=== PATIENT | male | born 1980 | race African-American/Black ===

== ENCOUNTER 2019-08-05 22:28 | Inpatient (IN) | payer MEDICAID ==
[~2019-08-05] VITALS: Ht 180.3 cm; Wt 126.4 kg
--- NOTE | ~2019-08-05 | HEMODYNAMI ---
PATIENT:CATHY WILBURN MEDICAL RECORD: [id number] : [birth year] [id number] ADMISSION DATE: 08/06/19 Generatedon:08/07/20199:32 Patient name: CATHY WILBURN Patient #: [id number] SSN: [id number] : 1980 Date of study: 08/07/2019 Page: Of Hemodynamic Procedure Report Patient Data Patient Demographics Procedure consent was obtained First Name: CATHY Gender: Male Last Name: AKILA : 1980 Patient #: [id number] Age: 38 year(s) Race: Black SSN: [id number] Additional ID: [id number] Contact details Address: [address] [place] [address] State: [place] City: [place] Zip code: [address] Past Medical History Allergies: No known allergies Admission Admission Data Admission Date: 08/06/2019 Admission Time: 2:24 Arrival Date: 08/07/2019 Arrival Time: 0:00 Admit Source: Other Insurance Payor: Medicaid Room #: [place] [facility] #: [id number] Height (in.): 71 BSA: 2.44 (m2) Height (cm.): 180.34 BMI: 39.42 (kg/m2) Weight (lbs.): 282.66 Weight (kg.): 128.21 Lab Results Lab Result Date: 08/07/2019 Lab Result Time: 0:00 Biochemistry Name Units Result Min Max BUN mg/dl 26 --(----)-* 7 18 Creatinine mg/dl 5.8 --(----)-* 0.6 1.3 eGFR ml/min 12 *-(----)-- 90 120 NONAFRICAN CBC Name Units Result Min Max Hemoglobin g/dl 9.8 *-(----)-- 13.5 17.5 Procedure Procedure Types Cath Procedure Diagnostic Procedure LHC [facility] w/Coronaries Sedation Charges Moderate Sedation up to 15 minutes Procedure Description Procedure Date Procedure Date: 08/07/2019 Procedure Start Time: 9:15 Procedure End Time: 9:25 Procedure Staff Name Function Tl Will MD Performing Physician Shavon Fisher RN Nurse Yuki Maciel RT Scrub Sindy Houser RT Monitor Procedure Data Cath Procedure Fluoroscopy Diagnostic fluoroscopy Total fluoroscopy Time: 1.2 time: 1.2 min min Diagnostic fluoroscopy Total fluoroscopy dose: 549 dose: 549 mGy mGy Contrast Material Contrast Material Type Amount (ml) Isovue 300 66 Entry Location Entry Primary Successful Side Size Upsize Upsize Entry Closure Succes sful Closure Location (Fr) 1 (Fr) 2 (Fr) Remarks Device Remarks Femoral Right 5 Fr Exoseal artery Estimated blood loss: 5 ml Diagnostic catheters Device Type Used For End Catheter Placement MULTIPACK JL 4.0 5Fr Left Coronary catheter Angiography MULTIPACK 3DRC 5Fr Right Coronary catheter Angiography MULTIPACK Pigtail 5 Fr LV Angiography catheter Procedure Complications No complications Procedure Medications Medication Administration Route Dosage Oxygen etCO2 Nasal cannula 2 l/min Lidocaine 2% added to field 20 Heparin Flush Bag added to field 2 bags (1000units/500ml NS) 0.9% NaCl I.V. Fentanyl I.V. 50 mcg Lopressor I.V. 5 mg Fentanyl I.V. 50 mcg Hemodynamics Rest BSA: 2.44 (m2) HGB: 9.8 (g/dl) O2 Consumption: Estimated: 322.88 (ml/min) O2 Con sumption indexed: Estimated:132.33 (ml/min/m) Heart Rate: 96 (bpm) Pressure Samples Time Site Value (mmHg) Purpose Heart Use Rate(bpm) 9:22 LV 147/14,29 Snapshot 94 Snapshots Pre Cath Intra NCS Post Cath Vital Signs Time Heart Resp SPO2 etCO2 NIBP (mmHg) Rhythm Pain Sedation Rate (ipm) (%) (mmHg) Status Level (bpm) 9:04:00 97 15 97 23.4 Measuring NSR 0 (11) 10(A) , No pain 9:06:05 94 27 97 29.5 159/95(121) NSR 0 (11) 10(A) , No pain 9:10:39 95 27 96 25.7 161/96(125) NSR 0 (11) 10(A) , No pain 9:15:14 95 30 98 21.2 162/95(124) NSR 0 (11) 9(A) , No pain 9:19:50 93 28 98 24.2 156/93(119) NSR 0 (11) 9(A) , No pain 9:24:27 92 25 96 23.4 156/91(118) NSR 0 (11) 10(A) , No pain Medications Time Medication Route Dose Verified Delivered Reason Notes Effe ctiveness by by 9:00:11 0.9% NaCl I.V. kvo Tloseas Puentesie Per ml/hr St Lloyd dai MD 9:00:43 Oxygen etCO2 2 Tl Buffie used for Nasal l/min [facility] Lloyd Fisher RN procedure cannula 9:00:50 Lidocaine 2% added 20ml Tl Tl for local to vial [facility] anesthetic field MD RASMUSSEN 9:00:56 Heparin Flush added 2 Tl Tl used for Bag to bags [facility] procedure (1000units/500ml field MD RASMUSSEN NS) 9:06:01 Fentanyl I.V. 50 Tl Puentesie for [facility] [place] [facility] Lloyd Fisher RN sedation 9:12:51 Fentanyl I.V. 50 Tl Delorisie for [facility] [place] [facility] Lloyd Fisher RN sedation 9:21:21 Lopressor I.V. 5 mg Tl Puentesie Per [facility] Lloyd dai MD Procedure Log Time Note 7:41:44 Informed consent obtained and on chart 7:44:01 Patient allergic to No known allergies 7:45:33 Arrival Date: 08/07/2019 12:00:00 AM 7:47:01 Patient Height : 71 inches 7:47:06 Patient Weight : 282.66 lbs 7:47:22 Insurance Payor : Medicaid 7:47:51 Diagnostic Cath Status : Elective 7:48:12 Admit Source: Other 7:48:17 Procedure Status Elective Heart Cath (OP). 7:48:19 Time tracking: Regular hours (M-F 7:00 - 5:00) 7:48:24 Plan of Care:Hemodynamics will remain stable., Cardiac rhythm will remain stable., Comfort level will be maintained., Respiratory function will remain adequate., Patient/ family verbilizes understanding of procedure., Procedure tolerated without complication., Recovers from procedure without complications.. 8:25:31 Risk of Mortality: 0.8 8:25:36 Risk of blood transfusion: 43.8 8:25:42 Risk of NADIA: 32.7 8:36:13 Shavon Fisher RN sent for patient. Start room use. 8::58 Lab Result : BUN 26 mg/dl 8::58 Lab Result : Hemoglobin 9.8 g/dl 8::58 Lab Result : eGFR NONAFRICAN 12 ml/min 8::58 Lab Result : Creatinine 5.8 mg/dl 9:00:11 0.9% NaCl kvo ml/hr I.V. was administered by Shavon Fisher RN; Per physician; Verbal order read back and verified. 9:00:43 Oxygen 2 l/min etCO2 Nasal cannula was administered by Shavon Fisher RN; used for procedure; Verbal order read back and verified. 9:00:50 Lidocaine 2% 20ml vial added to field was administered by Tl Will MD; for local anesthetic; Verbal order read back and verified. 9:00:56 Heparin Flush Bag (1000units/500ml NS) 2 bags added to field was administered by Tl Will MD; used for procedure; Verbal order read back and verified. 9:02:09 Patient received from CVICU to CCL 1 Alert and oriented. Tansferred to table in Supine position. 9:02:09 Vital chart was started 9:02:15 Warm blankets applied, and lissy hugger turned on for patient comfort. 9:02:15 Correct patient and procedure confirmed by team. 9:02:16 ECG and BP/O2 sat monitors applied to patient. 9:02:17 Baseline sample Acquired. 9:02:22 Full Disclosure recording started 9:02:27 H&P Date Dictated: 08/07/2019 New H&P dictated by physician.. 9:02:29 Pre-procedure instructions explained to patient. 9:02:30 Pre-op teaching completed and patient verbalized understanding. 9:02:35 Family unavailable. 9:02:38 Patient NPO since Midnight. 9:02:41 Is the patient allergic to Iodine/contrast media? No. 9:02:44 Was the patient premedicated? Yes 9:03:08 Patient diabetic? No. 9:03:10 Previous problem with sedation/anesthesia? No ? 9:03:12 Snore? Yes 9:03:14 Sleep apnea? No 9:03:15 Deviated septum? No 9:03:15 Opens mouth fully? Yes 9:03:16 Sticks out tongue? Yes 9:03:21 Airway obstruction? No ? 9:03:26 Dentures? No ? 9:03:36 Pre procedure: right dorsailis pedis pulse 2+ Normal; easily identifiable; not easily obliterated 9:03:39 Pre procedure: left dorsailis pedis pulse 2+ Normal; easily identifiable; not easily obliterated 9:03:42 Patient pain scale 0/10 ?. 9:03:49 IV patent on arrival in left forearm with 0.9% NaCl at [facility]. 9:03:52 Lab results completed and on chart. 9:04:43 Right groin area was prepped with chlora-prep and draped in sterile fashion 9:04:44 Alarms reviewed by RDaniel N. 9:04:45 Sharps counted by scrub and verified by R.N. 9:04:52 Physician arrived 9:04:53 --------ALL STOP TIME OUT------ 9:04:54 Final Timeout: patient, procedure, and site verified with staff and physician. All members of the team are in agreement. 9:04:57 Right groin site verified by team. 9:05:00 Fire Safety Assessment: A--An alcohol-based skin anteseptic being used preoperatively., C--Open oxygen or nitrous oxide is being used., D--An ESU, laser, or fiber-optic light is being used. 9:05:07 Physical assessment completed. ASA score P 2 - A patient with mild systemic disease as per Tl Will MD. 9:06:01 Fentanyl 50 mcg I.V. was administered by Shavon Fisher RN; for sedation; Verbal order read back and verified. 9:06:59 5) <15 or on dialysis Very severe, or end stage kidney failure. 9:08:07 Maximum allowable contrast dose (3.7 X eGFR X 0.75)22 ml. 9:08:12 Sedation plan: IV Moderate Sedation Medication:Versed, Fentanyl 9:08:18 Use device set Femoral Dx 9:08:23 ACIST Syringe (56932) opened to sterile field. 9:08:24 Bag Decanter (2002) opened to sterile field. 9:08:25 Medline Cath Pack ([id number]) opened to sterile field. 9:08:26 ACIST Hand Control (52559) opened to sterile field. 9:08:27 ACIST Manifold (90754) opened to sterile field. 9:08:28 DIAGNOSTIC Multipack 5Fr catheter set ([id number]) opened to sterile field. 9:08:28 Tegaderm 4 x 4 (1626W) opened to sterile field. 9:08:30 SHEATH 5FR [place] (BCE590) opened to sterile field. 9:08:30 EMERALD Guide Wire (073-444) opened to sterile field. 9:12:51 Fentanyl 50 mcg I.V. was administered by Shavon Fisher RN; for sedation; Verbal order read back and verified. 9:15:15 Procedure started. 9:15:20 Local anesthetic to right femoral artery with Lidocaine 2% by Tl Will MD.INITIAL ACCESS ONLY 9:15:30 A 5 Fr sheath was inserted into the Right Femoral artery 9:18:17 A MULTIPACK JL 4.0 5Fr catheter was advanced over the wire and used for Left Coronary Angiography. 9:18:57 LCA angiography performed. 9:19:00 Injector settings: Ml/sec: 3, Volume: 6, 9:20:22 Catheter removed. 9:20:28 A MULTIPACK 3DRC 5Fr catheter was advanced over the wire and used for Right Coronary Angiography. 9:20:57 RCA angiography performed. 9:21:04 Injector settings: Ml/sec: 3., Volume: 6, 9:21:21 Lopressor 5 mg I.V. was administered by Shavon Fisher RN; Per physician; Verbal order read back and verified. 9:21:32 RCA angiography performed. 9:21:41 Injector settings: Ml/sec: 3, Volume: 6, 9:21:45 Catheter removed. 9:21:49 ACCDominant side:Left 9:22:02 A MULTIPACK Pigtail 5 Fr catheter was advanced over the wire and used for LV Angiography. 9:22:58 LV hemodynamics recorded. 9:23:03 LV gram done using LILLY 9:23:08 EF : 40 % 9:23:26 Sheath removed intact; hemostasis achieved with Exoseal to the Right Femoral artery. 9:23:28 Procedure ended.(Physican Out) 9:23:55 Fluoroscopy time 01.20 minutes. 9:23:59 Flurop Dose total: 549 9:23:59 Fluoroscopy dose: 549 mGy 9:24:06 Dose Area Product 88223 mGy/cm. 9:24:09 Contrast amount:Isovue 300 66ml. 9:24:13 Maximum allowable dose exceeded? Yes. 9:24:21 Sharps counted by scrub and verified by R.N. 9:24:23 Insertion/operative site no bleeding no hematoma. 9:24:25 Post-op/insertion site Right Femoral artery dressed using a 4 x 4 and Tegaderm. 9:24:30 Post procedure rhythm: unchanged. 9:24:33 Estimated blood loss: 5 ml 9:24:35 Post procedure instruction explained to patient.Patient verbalizes understanding. 9:24:36 Patient needs reinforcement of post procedure teaching. 9:24:47 Procedure type changed to Cath procedure, Diagnostic procedure, LHC, [facility] w/Coronaries, Sedation Charges, Moderate Sedation up to 15 minutes 9:24:48 Procedure and supply charges have been captured, reviewed, submitted and are correct. 9:24:54 Procedure Complication : No complications 9:24:57 Vital chart was stopped 9:25:00 [facility] Findings: mild to moderate CAD (<70%) 9:25:02 Operative report dictated upon procedure completion. 9:25:06 See physician's report for complete and final results. 9:25:08 Report given to CVICU. 9:25:11 Patient transfered to CVICU with Stretcher. 9:25:14 Procedure ended. 9:25:14 Full Disclosure recording stopped 9:25:24 End room use (Document Last) 9:29:46 EXOSEAL 5Fr (EX500) opened to sterile field. 9:30:20 MICROPUNCTURE 4FR Cook ([id number]) opened to sterile field. Device Usage Item Name Manufacture Quantity Catalog Hospital Part Current Minimal Lot# / Number Charge Number Stock Stock Serial# Code ACIST Syringe Acist 1 82435 511142 [id number] [id number] 20 (50405) Medical Systems Inc Bag Decanter Microtek 1 070073 40983 368653 5 () Medical Inc. Medline Cath Medline 1 [id number] 039334 67665 717061 5 Pack ([id number]) ACIST Hand Acist 1 19734 041707 545474 434394 5 Control Medical (16239) Systems Inc ACIST Acist 1 02053 686718 724890 801030 5 Manifold Medical (36801) Systems Inc DIAGNOSTIC Cardinal 1 [id number] 923752 43130 450848 30 Multipack 5Fr Health catheter set (DX2273) Tegaderm 4 x 3M 1 1626W 358314 812360 714073 5 4 (1626W) SHEATH 5FR Terumo 1 JIL444 448252 130031 635954 5 [place] (HOX607) EMERALD Guide Cardinal 1 502-455 613570 243185 180704 5 Wire Health (502-455) MULTIPACK JL Cardinal 1 487514 5 4.0 5Fr Health catheter MULTIPACK Cardinal 1 681152 5 3DRC 5Fr Health catheter MULTIPACK Cardinal 1 375144 5 Pigtail 5 Fr Health catheter EXOSEAL 5Fr Cardinal 1 EX500 638528 695327 388045 10 (EX500) Health MICROPUNCTURE Nursery Medical 1 [id number] 079899 463043 661824 5 4FR Nursery (G64947) Signature Audit [place] Stage Time Signature Unsigned Intra-Procedure 08/07/2019 Sindy Houser 9:30:20 AM RT(R) Intra-Procedure 08/07/2019 Shavon Fisher RN 9:30:56 AM Intra-Procedure 08/07/2019 Tl Fritz 9:32:35 AM Lloyd RASMUSSEN [id number] [place] [address]
--- NOTE | 2019-08-05 23:45 | NUR ---
PT AMBULATED TO RESTROOM INDEPENDENTLY.
[2019-08-06] VITALS (27 sets, daily range): BP systolic 125–184; BP diastolic 59–135; BMI 37.6; BMI 37.5
[2019-08-06 00:43] LABS: HEMATOCRIT 27.5 % (42.0-54.0); HEMOGLOBIN 9.4 g/dL (13.5-17.5); LYMPHOCYTES 12.7 % (15-50); MCH 30.6 pg (26.0-34.0); MCHC 34.2 g/dL (31.0-37.0); MCV 89.6 fL (80.0-100.0); MEAN PLATELET VOLUME 12.5 fL (7.4-10.4); NEUTROPHILS 83.1 % (40-80); PLATELET COUNT 116 10x3/uL (130-400); RBC 3.07 10x6/uL (4.20-6.10); RDW 15.1 % (11.5-14.5); WBC 13.7 10x3/uL (4.8-10.8)
[2019-08-06 01:47] LABS: ALBUMIN 3.1 g/dL (3.4-5.0); ALKALINE PHOSPHATASE 101 U/L (30-120); ALT (SGPT) 34 U/L (10-68); BILIRUBIN - TOTAL 1.11 mg/dL (0.2-1.3); CALC OSMOLALITY 278 mosm/kg (275-300); CALCIUM 8.4 mg/dL (8.5-10.1); CARBON DIOXIDE 29.8 mmol/L (21.0-32.0); CHLORIDE - SERUM 98 mmol/L (98-107); CKMB 5.6 U/L (0.0-3.6); CREATINE KINASE 690 UL (21-232); CREATININE - SERUM 8.5 mg/dL (0.6-1.3); GLUCOSE 116 mg/dL (74-106); PROTEIN - SERUM 6.5 g/dL (6.4-8.2); SODIUM 134 mmol/L (136-145); UREA NITROGEN 40 mg/dL (7-18); eGFR NON AFRICAN AMERICAN 7 mL/min (90-120)
[2019-08-06 01:52] LABS: POTASSIUM - SERUM 2.8 mmol/L (3.5-5.1); TROPONIN-I 1.064 ng/mL (0.000-0.060)
--- NOTE | 2019-08-06 03:15 | NUR ---
PT ARRIVED TO THE FLOOR. ALERT AND ORIENTED. NO SIGNS OF DISTRESS. BREATHING EVEN AND UNLABORED. IV SITES X2. LT AC AND RT AC DRESSING CLEAN DRY AND INTACT. NO SIGNS OF INFECTION OR INFULTRATION. LUNG SOUNDS CLEAR. BOWEL SOUNDS ACTIVE. SKIN CLEAN DRY AND INTACT. WILL CONTINUE PLAN OF CARE. CALL LIGHT IN REACH. BED LOWERED AND LOCKED. BED RAILS UPX2.
[2019-08-06 07:49] LABS: ALBUMIN 3.3 g/dL (3.4-5.0); BILIRUBIN - TOTAL 0.97 mg/dL (0.2-1.3); CALCIUM 8.3 mg/dL (8.5-10.1); CARBON DIOXIDE 27.4 mmol/L (21.0-32.0); CREATININE - SERUM 8.4 mg/dL (0.6-1.3); PROTEIN - SERUM 6.7 g/dL (6.4-8.2)
[2019-08-06 07:58] LABS: HEMATOCRIT 27.8 % (42.0-54.0); HEMOGLOBIN 9.8 g/dL (13.5-17.5); MCH 31.7 pg (26.0-34.0); MCHC 35.3 g/dL (31.0-37.0); MEAN PLATELET VOLUME 12.6 fL (7.4-10.4); NEUTROPHILS 74.7 % (40-80); PLATELET COUNT 111 10x3/uL (130-400); RBC 3.09 10x6/uL (4.20-6.10); RDW 15.1 % (11.5-14.5); WBC 11.8 10x3/uL (4.8-10.8)
[2019-08-06 08:06] LABS: ANION GAP 11.5 mmol/L (8-16)
[2019-08-06 08:07] LABS: TROPONIN-I 1.382 ng/mL (0.000-0.060)
[2019-08-06 08:15] LABS: POTASSIUM - SERUM 2.9 mmol/L (3.5-5.1)
--- NOTE | 2019-08-06 12:32 | NUR ---
ADMINISTERED POTASSIUM. PT UPRIGHT IN BED EATING LUNCH. DR. BROWER CALLED AND INFORMED ME HE WANTS PT MOVED TO ICU. BED IS AVAILABLE. GOING TO CALL REPORT DIRECTLY. DENIES ANY NEEDS. WILL CONTINUE TO MONITOR.
--- NOTE | 2019-08-06 12:44 | NUR ---
CALLED REPORT TO ICU. PT IS INSISTENT ON EATING LUNCH BEFORE TRANSFERING.
--- NOTE | 2019-08-06 14:21 | NUR ---
RECEIVED PATIENT TO ROOM CV08 FROM ICU VIA BED. PATIENT ALERT AND ORIENTED X 4. CM - ST HR 104, RR - 30, TACHYPNEA, SPO2 97% ON RA, BBS - CRACKLES NOTED. IV 20 GA TO BILATERAL AC'S. BP 178/119 (140).
--- NOTE | 2019-08-06 14:30 | NUR ---
LAB AT ROOM ATTEMPTING TO DRAW BLOOD BUT UNABLE TO COLLECT.
--- NOTE | 2019-08-06 14:55 | NUR ---
PATIENTS GIRLFRIEND AT ROOM UPDATED AND QUESTIONS ANSWERED.
--- NOTE | 2019-08-06 19:15 | NUR ---
BEDISDE SHIFT REPORT RECEIVED. RECEIVED PATIENT IN BED. AWAKE, ALERT AND ORIENTED X 4. DR. BROWER AT BEDSIDE, PLACED TRIALYSIS CATH TO RT IJ. PATIENT ROCK WELL. ASSESSMENT COMPLETED PER FLOW SHEET WITH NO ACUTE DISTRESS OBSERVED. MONITORS CONNECTED TO PATIENT WITH ALARMS SET. VSS. CALL LIGHT IN EASY REACH AND ABLE TO UTILIZE TO MAKE NEEDS KNOWN.
--- NOTE | 2019-08-06 19:35 | NUR ---
RADIOLOGY AT BEDSIDE. PORTABLE CXR OBTAINED/ EXAMINED BY DR. BROWER. DR. BROWER VERBALIZED OK TO USE TRIALYSIS. HD NURSE NOTIFIED.
[2019-08-06 20:04] LABS: LDL-HDL RATIO 1.7 ratio (1.5-3.5)
[2019-08-06 20:05] LABS: TROPONIN-I 1.347 ng/mL (0.000-0.060)
--- NOTE | 2019-08-06 20:43 | NUR ---
HD NURSE AT BEDSIDE. HD IN PROGRESS TOLERATING WELL. VSS
--- NOTE | 2019-08-06 23:00 | NUR ---
CONTNUES WITH HD AND TOLERATING WELL. VSS. REASSESSMENT COMPLETED PER FLOW SHEET WITH NO ACUTE DISTRESS OBSERVED. CALL LIGHT IN REACH. CONT CURRENT POC
--- NOTE | 2019-08-06 23:48 | NUR ---
HD COMPLETE. PATIENT ROCK WITHOUT DIFF.
[2019-08-07] VITALS (44 sets, daily range): BP systolic 131–189; BP diastolic 78–123; Ht 180.3 cm; Wt 126.4 kg
--- NOTE | 2019-08-07 01:00 | NUR ---
RESTING WITH EYES CLOSED, EASILY ROUSED AND ALERT. VSS. CALL LIGHT IN REACH
--- NOTE | 2019-08-07 03:00 | NUR ---
REASSESSMENT COMPLETED PER FLOW SHEET WITH NO ACUTE DISTRESS OBSERVED. VSS. CALL LIGHT IN REACH
--- NOTE | 2019-08-07 04:55 | NUR ---
PRN APRESOLINE ADMIN FOR BP 177/115
[2019-08-07 04:56] LABS: BASOPHILS 0 % (0-2); EOSINOPHILS 0.3 % (0-7); HEMATOCRIT 26.1 % (42.0-54.0); HEMOGLOBIN 8.5 g/dL (13.5-17.5); IMMATURE GRANULOCYTES 0.3 % (0-5); LYMPHOCYTES 18.5 % (15-50); MCH 29.8 pg (26.0-34.0); MCHC 32.6 g/dL (31.0-37.0); MCV 91.6 fL (80.0-100.0); MONOCYTES 6.2 % (2-11); NEUTROPHILS 74.7 % (40-80); RBC 2.85 10x6/uL (4.20-6.10); WBC 10.9 10x3/uL (4.8-10.8)
[2019-08-07 04:59] LABS: PLATELET COUNT 134 10x3/uL (130-400)
[2019-08-07 05:01] LABS: CARBON DIOXIDE 29.2 mmol/L (21.0-32.0); MAGNESIUM - SERUM 1.8 mg/dL (1.8-2.4); PHOSPHOROUS 4.1 mg/dL (2.5-4.9); POTASSIUM - SERUM 3.2 mmol/L (3.5-5.1)
[2019-08-07 05:04] LABS: CREATININE - SERUM 5.8 mg/dL (0.6-1.3)
--- NOTE | 2019-08-07 08:17 | NUR ---
PREOP MEDS GIVEN PER ORDER, CONSENTS SIGNED.
--- NOTE | 2019-08-07 08:48 | NUR ---
PATIENT TO COOK ICE CREAM WITH COOK ICE CREAM RN VIA BED. BURAKS.
--- NOTE | 2019-08-07 08:51 | EC ---
PATIENT:CATHY WILBURN DATE OF SERVICE: 08/06/19 SEX: M MEDICAL RECORD: [id number] DATE OF : [birth year] LOCATION:[place] [address] AGE OF PATIENT: 38 ADMISSION DATE: 08/06/19 REFERRING PHYSICIAN: INTERPRETING PHYSICIAN: MADELYN KEEN MD ECHOCARDIOGRAM REPORT ECHO CHARGES 4 ECHO COMPLETE Date: 08/06/19 CLINICAL DIAGNOSIS: SOB, HTN ECHOCARDIOGRAPHIC MEASUREMENTS (adult normal given) AC root (d.<3.7cm) 3.0 cm LV Septum d (<1.2 cm> 1.1 cm Valve Excursion 1.9 cm LV Septum (systole) 2.0 cm Left Atria (s.<4.0cm> 4.5 cm LVPW d(<1.2cm) 1.7 cm RV (d.<2.3cm) 3.3 cm LVPW (sytole) 1.8 cm LV diastole(<5.6CM) 6.6 cm MV E-F(>70mm/sec) cm LV systole 4.8 cm LVOT Diameter 2.1 cm MV exc.(>10mm) cm Est.ejection fraction (50-75%) % DOPPLER: LVIT cm/sec A 34 cm/sec E 108 cm/sec LA cm/sec RVSP 45.9 mmHg LVOT 115 cm/sec AOP1/2T m/s Asc. Ao 145 cm/sec RVOT 42 cm/sec RA cm/sec PA 65 cm/sec AV Gradient Peak 8.5 mmHg AV Mean 4.7 mmHg AV Area 3.2 cm MV Gradient Peak 8.7 mmHg MV Mean 4.0 mmHg MV Area cm COMMENTS: Gaming Host: Nasir RIVERA Human Resource Management Instructor: 3 Dr. Calloway TAPE# PACS Pericardial Effusion N DATE OF SERVICE: Adequate 2D, color flow imaging, spectral Doppler, and M-Mode. LVH is present. LV internal dimensions are dilated. LV appears to be mildly globally hypo. EF lower limits of normal, mildly reduced at 45% to 50%. Aortic valve sclerosis without stenosis by Doppler interrogation. Left atrium dilated at 4.5 cm. Mitral valve shows no prolapse. Mild MR. Right-sided chambers are grossly normal. Moderate TR. ECHOCARDIOGRAM REPORT [id number] CATHY WILBURN TRANSINT:[id number] Voice Confirmation ID: [id number] DOCUMENT ID: [id number] MADELYN KEEN MD at 0851 CC: [id number] DICTATION DATE: 08/06/19 1313 REHABILITATION TECH: 08/06/19 1346 ADM IN [facility] [address] [id number]
--- NOTE | 2019-08-07 09:53 | NUR ---
RECIEVED PATIENT BACK FROM CHOPPER OPERATOR VIA BED. VSS. RIGHT GROIN SITE SOFT, NO HEMATOMA OR BLEEDING NOTED, DISTAL RIGHT FOOT DP AND PT PULSES +2. IVF STARTED, NS AT 200 ML/HR X 5 HOURS POST CATH PER ORDER. SIGNIFICANT OTHER AT BEDSIDE.
--- NOTE | 2019-08-07 09:58 | NUR ---
Nutrition follow-up: Pt to slab worker this morning at time of RDN visit. Hemosplit placed with dialysis 08/05 Diet: Low sodium; po intake was good at meals 08/05 NPO today Wt: 278# RDN following.
--- NOTE | 2019-08-07 10:08 | NUR ---
RIGHT FOOT DP AND PT PULSES +2, RIGHT GROIN SOFT, NO HEMATOMA. VSS.
--- NOTE | 2019-08-07 10:47 | NUR ---
REASSESSMENT COMPLETED. VSS. RIGHT GROIN SITE, SOFT, NO HEMATOMA OR BLEEDING NOTED. RIGHT FOOT DP AND PT PULSES +2. NO NEEDS AT THIS TIME.
--- NOTE | 2019-08-07 12:13 | NUR ---
PATIENT ATE APPROXIMATELY 80% OF LUNCH TRAY, RIGHT GROIN SITE SOFT, NO HEMATOMA OR BLEEDING NOTED. RIGHT FOOT DP AND PT PULSES +2. DIALYSIS AT ROOM SETTING UP FOR DIALYSIS.
--- NOTE | 2019-08-07 13:30 | NUR ---
PATIENT RESTING QUIETLY, DIALYSIS ONGOING, VSS. TOLERATING WELL. AROUSES EASILY TO VOICE. PROVIDED DRINK PER REQUEST.
--- NOTE | 2019-08-07 14:01 | NUR ---
PATIENT RESTING QUIETLY EYES CLOSED, SIGNIFICANT OTHER AT ROOM, VSS. TOLERATING DIALYSIS WELL. DIALYSIS NURSE AT BEDSIDE.
--- NOTE | 2019-08-07 15:16 | NUR ---
REASSESSMENT COMPLETED. VSS. WATCHING TV, TOLERATING DIALYSIS WELL. GIVEN PRN HYDRALIZINE FOR DIASTOLIC >105 (111).
--- NOTE | 2019-08-07 15:29 | NUR ---
SPOKE TO DR. SCHULER CONCERNING IVF'S ORDERED (NS AT 100 ML/HR) OK TO DISCONTINUED IVF'S, TO SALINE LOCK IV ACCESS.
--- NOTE | 2019-08-07 16:04 | NUR ---
RIGHT GROIN SITE, SOFT TO PALPATION, NO HEMATOMA OR BLEEDING NOTED. RIGHT FOOT DP AND PT PULSES +2. NO NEEDS AT THIS TIME.
--- NOTE | 2019-08-07 16:47 | NUR ---
PATIENT GIVEN DINNER TRAY AND SET UP. C/O NAUSEA GIVEN PRN MED.
[2019-08-07 17:04] LABS: MAGNESIUM - SERUM 1.8 mg/dL (1.8-2.4); POTASSIUM - SERUM 3.6 mmol/L (3.5-5.1)
--- NOTE | 2019-08-07 17:52 | NUR ---
PATIENT ASSISTED UP TO BATHROOM, AMBULATES AND TOLERATES WELL, VSS. VOIDS, URINE SPECIMEN SENT TO LAB PER ORDERS.
--- NOTE | 2019-08-07 18:05 | NUR ---
PATIENT SITTING UP IN BEDSIDE CHAIR, VSS. NO NEEDS AT THIS TIME. WATCHING TV.
[2019-08-07 18:48] LABS: BILIRUBIN NEGATIVE (NEGATIVE); GLUCOSE 50 mg/dL (NEGATIVE); KETONE NEGATIVE (NEGATIVE); NITRITE NEGATIVE (NEGATIVE); UROBILINOGEN NORMAL (NORMAL)
[2019-08-07 18:49] LABS: RED CELLS - URINE 0-5 /hpf (0-5); WHITE CELLS - URINE 0-5 /hpf (NEGATIVE)
[2019-08-07 18:50] LABS: BACTERIA MODERATE /hpf (NEGATIVE)
[2019-08-07 18:55] LABS: CREATININE - URINE 274.9 mg/dL (30-125); PRO/CRE RATIO URINE 1.6 mg/g; PROTEIN - URINE 442.2 mg/dL (0.0-11.9)
--- NOTE | 2019-08-07 20:00 | NUR ---
FAMILY AT BEDSIDE FOR VISITATION
--- NOTE | 2019-08-07 22:00 | NUR ---
ANSWERED PTS CALL LIGHT ASSISTED BACK TO BED MINIMAL ASSIST NEEDED
[2019-08-08] VITALS (26 sets, daily range): BP systolic 134–192; BP diastolic 80–120
--- NOTE | 2019-08-08 | NUR ---
PULSE CHECK PALPABLE RIGHT GROIN SITE CDI NO BLEEDING HEMATOMA NOTED CPOC
--- NOTE | 2019-08-08 03:23 | NUR ---
BP ELEVATED MEDICATED PER PRN MED SEE EMAR WILL CONTINUE TO MONITOR
[2019-08-08 05:28] LABS: BASOPHILS 0 % (0-2); EOSINOPHILS 0.7 % (0-7); HEMATOCRIT 26.4 % (42.0-54.0); HEMOGLOBIN 8.4 g/dL (13.5-17.5); IMMATURE GRANULOCYTES 0.4 % (0-5); LYMPHOCYTES 28.7 % (15-50); MCH 29.8 pg (26.0-34.0); MCHC 31.8 g/dL (31.0-37.0); MEAN PLATELET VOLUME 11.9 fL (7.4-10.4); MONOCYTES 6.7 % (2-11); NEUTROPHILS 63.5 % (40-80); RBC 2.82 10x6/uL (4.20-6.10); RDW 15.5 % (11.5-14.5)
[2019-08-08 05:41] LABS: MCV 93.6 fL (80.0-100.0); PLATELET COUNT 176 10x3/uL (130-400)
[2019-08-08 05:48] LABS: ANION GAP 7.3 mmol/L (8-16); BILIRUBIN - TOTAL 0.51 mg/dL (0.2-1.3); CALCIUM 8.1 mg/dL (8.5-10.1); CARBON DIOXIDE 29.3 mmol/L (21.0-32.0); CREATININE - SERUM 5.5 mg/dL (0.6-1.3); POTASSIUM - SERUM 3.6 mmol/L (3.5-5.1); PROTEIN - SERUM 6.3 g/dL (6.4-8.2)
--- NOTE | 2019-08-08 07:00 | NUR ---
AWAKES EASILY TO VERBAL STIMULI SKIN WARM AND DRY. RIJ TRIALYSIS DRESSING DRY AND INTACT. CATHETER SALINE LOCKED. IV RIGHT AC SALINE LOCK, NO REDNESS OR REDNESS. MONITOR SR TO ST.
[2019-08-08 07:13] LABS: HEP B CORE AB TOTAL Negative (Negative); HEPATITIS C ANTIBODY <0.1 S/CO RAT (0.0-0.9)
--- NOTE | 2019-08-08 08:00 | NUR ---
BREAKFAST SERVED ATE WELL.
--- NOTE | 2019-08-08 08:32 | OP ---
PATIENT NAME: CATHY WILBURN MEDICAL RECORD: [id number] :78 LOCATION:[place]CV08 ADMISSION DATE:08/06/19 SURGEON: MADELYN KEEN MD DATE OF OPERATION: 08/07/2019 PROCEDURE: Left heart catheterization, selective coronary angiography, right femoral artery approach. CATHETERS: A 5-Japanese sheath, 5/4 left and right Navi, 5/4 pig. The procedure was well tolerated. The patient returned to the candelario. Sheath removed. ExoSeal device placed. FINDINGS: Left ventriculography in 30-degree LILLY view shows mild global hypokinesis, LV function mildly reduced at 40%. CORONARY ANATOMY: LEFT MAIN: Left main is free of disease. LAD: Free of disease in the diagonal system. CIRCUMFLEX: Free of disease in the marginal system. This is left dominant system. RIGHT CORONARY ARTERY: Rudimentary, free of disease. IMPRESSION: Mild nonischemic cardiomyopathy. TRANSINT:[id number] Voice Confirmation ID: [id number] DOCUMENT ID: [id number] MADELYN KEEN MD at 0832 CC: [id number] DICTATION DATE: 08/07/19 0932 TITLE OFFICER: 08/07/19 1126 ADM IN [facility] [address] [place] [address]
--- NOTE | 2019-08-08 09:00 | NUR ---
UP TO CHAIR AT BEDSIDE.AMBULATED TO BATHROOM VOIDED. GAIT GOOD. TOLERATED WELL.
--- NOTE | 2019-08-08 10:58 | NUR ---
HYDRALYZINE GIVEN GOR ELEVATED BLOOD PRESSURE EFFECTIVE.
--- NOTE | 2019-08-08 17:57 | NUR ---
PATIENT SLEEPING IN CHAIR DENIES ANY PAIN OR DISCOMFORT STATES HE IS JUST SLEEPY. RESP DEEP AND REGULAR. APRESOLINE GIVEN FOR ELEVATED BP, NOT RESPONDING TO LABELOL
--- NOTE | 2019-08-08 19:00 | NUR ---
REPORT RECEIVED INITIAL ASSESSMENT COMPLETE. PT UP WALKING AROUND IN ROOM. PT BLOOD PRESSURE ELEVATED NIGHT MEDS GIVEN EARLY WILL MONITOR. ALERT AND ORIENTED. BACK TO BED AND PLACED ON CM READING SR WITHOUT ECTOPY. RIGHT IJ TRIALYSIS WITH DRESSING CDI. BED LOW POSITION SIDE RAILS UP TIMES 3 FOR BED MOBILITY AND SAFETY CL IN REACH WILL CPOC
--- NOTE | 2019-08-08 23:00 | NUR ---
REASSESSMENT COMPLETE NO CHANGES. WHEN PT SLEEPING SOUNDLY HAS PERIODS OF APNEA AND OCCASIONALLY BRADYCARDIC TO LOW 50'S. AND O2 SAT TO 70'S. DOES RETURN TO NORMAL QUICKLY. WHEN ASKED IF PT WAS AWARE OF BOUTS OF SLEEP APNEA HE STATES "YES I WAS SUPPOSED TO HAVE A SLEEP STUDY DONE BUT NEVER DID GO" CPOC WILL CONTINUE TO MONITOR
[2019-08-09] VITALS (16 sets, daily range): BP systolic 127–165; BP diastolic 68–102
--- NOTE | 2019-08-09 01:00 | NUR ---
ANSWERED PTS CALL LIGHT REQUESTING URINAL DENIES PAIN OR ANY OTHER NEEDS AT THIS TIME
[2019-08-09 06:33] LABS: BASOPHILS 0 % (0-2); EOSINOPHILS 1.2 % (0-7); HEMATOCRIT 25.5 % (42.0-54.0); HEMOGLOBIN 8.2 g/dL (13.5-17.5); IMMATURE GRANULOCYTES 0.3 % (0-5); LYMPHOCYTES 31.3 % (15-50); MCH 30.4 pg (26.0-34.0); MCHC 32.2 g/dL (31.0-37.0); MCV 94.4 fL (80.0-100.0); MEAN PLATELET VOLUME 10.6 fL (7.4-10.4); MONOCYTES 7.6 % (2-11); NEUTROPHILS 59.6 % (40-80); PLATELET COUNT 175 10x3/uL (130-400); RDW 15.5 % (11.5-14.5)
[2019-08-09 07:08] LABS: ALBUMIN 2.7 g/dL (3.4-5.0); ANION GAP 13.2 mmol/L (8-16); BILIRUBIN - TOTAL 0.39 mg/dL (0.2-1.3); CALCIUM 8.3 mg/dL (8.5-10.1); CARBON DIOXIDE 25.4 mmol/L (21.0-32.0); POTASSIUM - SERUM 3.6 mmol/L (3.5-5.1); PROTEIN - SERUM 5.9 g/dL (6.4-8.2)
[2019-08-09 07:09] LABS: CREATININE - SERUM 6.9 mg/dL (0.6-1.3)
--- NOTE | 2019-08-09 08:00 | NUR ---
PATIENT AWAKES EASILY TO VERBAL STIMULI SKIN WARM AND DRY. SITTING UP IN BED FOR BREAKFAST. RIJ TRIALYSIS DRESSING INTACT, SALINE LOCKED. RIGHT AC IV SALINE LOCK. NO REDNESS OR SWELLING. DENIES PAIN. STATES HE SLEPT WELL LAST NIGHT.
--- NOTE | 2019-08-09 10:00 | NUR ---
UP IN CHAIR AT BEDSIDE. GOOD GAIT. NO DISTRESS. VOIDED 100 CC RONIT URINE.
--- NOTE | 2019-08-09 11:30 | NUR ---
LUNCH SERVED UP IN CHAIR. NO DISTRESS. ATE WELL
--- NOTE | 2019-08-09 13:30 | NUR ---
SLEEPING INBED. SNORING. NO DISTRESS.
--- NOTE | 2019-08-09 14:00 | NUR ---
NEW TRANSFER FROM CVICU VIA ACCOMPANIED BY HOSPITAL STAFF. PATIENT TRANSFERRED TO BED EASILY. PATIENT IS ALERT AND ORIENTED X 4 . PATIENT DENIES ANY NEEDS OR PAIN. PATIENT ORIENTED TO ROOM AND CALL LIGHT . WILL CONTINUE WITH PLAN OF CARE. SR UP X 2 BED IN LOW POSITION AND CALL LIGHT IN REACH.
--- NOTE | 2019-08-09 14:44 | NUR ---
REPORT CALLED TO FELISA MOCK, PATIENT TRANSFERED TO ROOM 2139 PER WHEEL CHAIR TOLERATED WELL.
--- NOTE | 2019-08-09 16:57 | NUR ---
PATIENT SITTING UP IN BED EATING SUPPER. PATIENT IS STABLE AND VSS. PATIENT DENIES ANY NEEDS OR PAIN. WILL CONTINUE TO MONITOR. SR UPX 2 BED IN LOW POSTION AND CALL LIGHT IN REACH.
--- NOTE | 2019-08-09 19:33 | NUR ---
PT IS AWAKE AND ALERT AND DENIES NEEDS AT THIS TIME BED LOW AND LOCKED CALL LIGHT IS IN REACH
--- NOTE | 2019-08-10 03:14 | NUR ---
I have reviewed this patient and I concur with the Shift Assessment completed by the Licensed Practical Nurse today this shift.
[2019-08-10 07:11] LABS: BASOPHILS 0 % (0-2); EOSINOPHILS 2.2 % (0-7); HEMATOCRIT 25.2 % (42.0-54.0); IMMATURE GRANULOCYTES 0.5 % (0-5); LYMPHOCYTES 35.3 % (15-50); MCHC 31.7 g/dL (31.0-37.0); MCV 94.4 fL (80.0-100.0); MEAN PLATELET VOLUME 11.8 fL (7.4-10.4); MONOCYTES 6.8 % (2-11); NEUTROPHILS 55.2 % (40-80); RBC 2.67 10x6/uL (4.20-6.10); RDW 15.1 % (11.5-14.5); WBC 8.7 10x3/uL (4.8-10.8)
[2019-08-10 07:13] LABS: PLATELET COUNT 222 10x3/uL (130-400)
[2019-08-10 07:15] LABS: ALBUMIN 2.7 g/dL (3.4-5.0); ANION GAP 12.7 mmol/L (8-16); BILIRUBIN - TOTAL 0.33 mg/dL (0.2-1.3); CALCIUM 8.3 mg/dL (8.5-10.1); CARBON DIOXIDE 24.7 mmol/L (21.0-32.0); POTASSIUM - SERUM 3.4 mmol/L (3.5-5.1); PROTEIN - SERUM 5.9 g/dL (6.4-8.2)
--- NOTE | 2019-08-10 07:20 | NUR ---
RECIEVE REPORT. ALERT AND ORIENTED X4. SITTING UP IN BED WATCHING TV. DENIES ANY NEEDS AT THIS TIME. SINUS RYTHM ON TELEMETRY. CONTINUE PLAN OF CARE AND SAFETY PRECAUTIONS.
[2019-08-10 09:52] VITALS: BP 135/84
--- NOTE | 2019-08-10 14:57 | NUR ---
Nutrition Follow-up: Eating well. Denies N/V/C/D. Diet: Cardiac PO intake: 80-100% Wt: 286# (08/08); 277.7# (08/06) Last BM: 08/09 Labs noted: Na 135, K+ 3.4, Alb 2.7 Meds reviewed -Encourage PO intake and honor food preferences within diet restrictions. -Monitor wt. -RD following.
--- NOTE | 2019-08-10 18:04 | NUR ---
ALERT AND ORIENTED X4. SITTING UP IN BED WATCHING TV. DENIES PAIN OR SOB. DENIES ANY NEEDS AT THIS TIME. CONTINUE PLAN OF CARE AND SAFETY PRECAUTIONS.
[2019-08-10 18:13] VITALS: BP 178/109
[2019-08-10 22:05] VITALS: BP 151/98
[2019-08-11] VITALS (7 sets, daily range): BP systolic 155–186; BP diastolic 97–139
[2019-08-11 05:11] LABS: BASOPHILS 0 % (0-2); HEMATOCRIT 24.6 % (42.0-54.0); HEMOGLOBIN 7.9 g/dL (13.5-17.5); IMMATURE GRANULOCYTES 0.1 % (0-5); MCH 30.2 pg (26.0-34.0); MCHC 32.1 g/dL (31.0-37.0); MCV 93.9 fL (80.0-100.0); MEAN PLATELET VOLUME 11.9 fL (7.4-10.4); MONOCYTES 7.9 % (2-11); PLATELET COUNT 258 10x3/uL (130-400); RBC 2.62 10x6/uL (4.20-6.10); RDW 14.8 % (11.5-14.5); WBC 7.9 10x3/uL (4.8-10.8)
[2019-08-11 05:36] LABS: ALBUMIN 2.6 g/dL (3.4-5.0); ANION GAP 10.7 mmol/L (8-16); BILIRUBIN - TOTAL 0.22 mg/dL (0.2-1.3); CARBON DIOXIDE 26.4 mmol/L (21.0-32.0); CREATININE - SERUM 6.3 mg/dL (0.6-1.3); POTASSIUM - SERUM 3.1 mmol/L (3.5-5.1); PROTEIN - SERUM 5.9 g/dL (6.4-8.2)
--- NOTE | 2019-08-11 07:35 | NUR ---
SURGERY TO CALL AND STATE THAT THE PREOP CHECKLIST IS NOT ON THE FRONT OF THE CHART AFTER THEY CALLED AND TALKED TO PRIMARY NURSE BRENNA. I WENT WITH THE PAPER TO HOLDING TO DO THE LIST AND THE PATIENT IS ALREADY IN THE BACK. PER ANNE GREGG SHE STATES SHE WILL LET THEM KNOW THAT I CAME TO DO IT AND PATIENT WAS ALREADY IN THE BACK.
--- NOTE | 2019-08-11 10:00 | NUR ---
REPORT RECIEVED FROM POSTOP. PT ARRIVED TO ROOM. RR EVEN AND UNLABORED ON 2L NC. VSS. PT NOW HAS A NEW HEMOSPLIT TO THE RIGHT CHEST. BED LOCKED AND IN LOWEST POSITION, CALL LIGHT WITHIN REACH. WILL CTM
[2019-08-11 13:24] LABS: % SATURATION 15 % (15-55); IRON 32 ug/dl (35-150); TOTAL IRON BIND CAPACITY 203 ug/dl (260-445); UNSAT IRON BIND CAPACITY 171 ug/dl (150-375)
--- NOTE | 2019-08-11 16:44 | NUR ---
I have reviewed this patient and I concur with the Shift Assessment completed by the Licensed Practical Nurse today this shift.
--- NOTE | 2019-08-11 16:49 | NUR ---
I have reviewed this patient and I concur with the Shift Assessment completed by the Licensed Practical Nurse today this shift.
--- NOTE | 2019-08-11 19:00 | NUR ---
EVENING ROUNDS COMLETE. PT SITTING UP IN BED, FAMILY AT BEDSIDE. AAOX4. NO SIGNS OF DISTRESS. PT DENIES ANY PAIN OR NEEDS AT THIS TIME. CL IN REACH, BED IN LOWEST POSITION.
[2019-08-12] VITALS: BP 135/81
[2019-08-12 04:00] VITALS: BP 147/94
[2019-08-12] MEDS ORDERED: NORVASC5 MG PO (07:32)
[2019-08-12] MEDS ORDERED: METOPROLOL TART50 MG PO (07:32)
[2019-08-12] MEDS ORDERED: ASPIRIN81 MG PO (07:33)
[2019-08-12 07:42] LABS: BASOPHILS 0.1 % (0-2); EOSINOPHILS 0.4 % (0-7); HEMATOCRIT 27.9 % (42.0-54.0); HEMOGLOBIN 8.9 g/dL (13.5-17.5); IMMATURE GRANULOCYTES 0.3 % (0-5); LYMPHOCYTES 31.8 % (15-50); MCH 30.3 pg (26.0-34.0); MCHC 31.9 g/dL (31.0-37.0); MCV 94.9 fL (80.0-100.0); MEAN PLATELET VOLUME 11.1 fL (7.4-10.4); MONOCYTES 6.7 % (2-11); NEUTROPHILS 60.7 % (40-80); PLATELET COUNT 294 10x3/uL (130-400); RBC 2.94 10x6/uL (4.20-6.10); RDW 14.8 % (11.5-14.5)
--- NOTE | 2019-08-12 07:45 | NUR ---
REPORT RECIEVED. PT SITTING UP IN BEDSIDE CHAIR. RR EVEN AND UNLABORED ON RA. HE HAS A R CHEST HEMOSPLIT AND IS A LEFT ARM RESERVE FOR A FUTURE FISTULA. CALL LIGHT WITHIN REACH. WILL CTM
[2019-08-12 07:46] LABS: WBC 10.3 10x3/uL (4.8-10.8)
[2019-08-12 08:01] LABS: ALBUMIN 3.3 g/dL (3.4-5.0); ANION GAP 12.3 mmol/L (8-16); BILIRUBIN - TOTAL 0.3 mg/dL (0.2-1.3); CALCIUM 8.4 mg/dL (8.5-10.1); CARBON DIOXIDE 26.3 mmol/L (21.0-32.0); CREATININE - SERUM 7.7 mg/dL (0.6-1.3); POTASSIUM - SERUM 3.6 mmol/L (3.5-5.1); PROTEIN - SERUM 6.4 g/dL (6.4-8.2)
--- NOTE | 2019-08-12 17:06 | NUR ---
TEXT INTO NIDHI ELKINS APN FOR DISCHARGE ORDERS FOR PATIENT WE HAVE A CHAIR TIME. AWAITING REPLY.
--- NOTE | 2019-08-12 17:08 | NUR ---
NIDHI ELKINS APN TO WRITE BACK THAT SHE WILL PLACE A DC ORDER. AWAITING.
--- NOTE | 2019-08-12 17:48 | NUR ---
I have reviewed this patient and I concur with the Shift Assessment completed by the Licensed Practical Nurse today this shift.
--- NOTE | 2019-08-12 19:37 | NUR ---
DC PAPERWORK GONE OVER AND SIGNED WITH PT. ALL QUESTIONS ANSWERED. ALL VALUBLES TAKEN WITH PT.
--- NOTE | 2019-08-13 16:31 | OP ---
PATIENT NAME: CATHY WILBURN MEDICAL RECORD: [id number] :79 LOCATION:D.M2 D.2139 ADMISSION DATE:08/06/19 SURGEON: KESHIA BROWER MD DATE OF OPERATION: 08/11/2019 PREOPERATIVE DIAGNOSIS: End-stage renal disease without chronic access for hemodialysis. POSTOPERATIVE DIAGNOSIS: End-stage renal disease without chronic access for hemodialysis. PROCEDURES: 1. Insertion of right IJ 19-cm HemoSplit catheter (dual-lumen cuffed hemodialysis catheter under fluoroscopy). 2. Immediate surgeon interpretation of the fluoroscopic images. SURGEON: Keshia Brower MD OPERATIONS STAFF SPECIALIST SECURITY: None. BLOOD LOSS: Minimal. ANESTHESIA: General. COMPLICATIONS: None. The risks, possible complications and alternatives to the procedure were explained to the patient. He elects to proceed. The discussion specifically included, but was not limited to, bleeding requiring emergency reoperation, infection, pneumothorax. No radiologist was present for this procedure. Static fluoroscopic images were obtained and are kept in the PACS system. The surgeon interpretation of the radiographic images was dictated within the body of this operative note. OPERATIVE COURSE: The patient was conveyed to the operating room electively on 08/11/2019. General anesthesia was induced by the anesthesia staff. The right neck and right upper chest were sterilely prepped and draped. An incision was accomplished in the right upper chest. I tunneled a HemoSplit catheter from the chest incision to the Trialysis catheter in the right IJ position. I incised along the Trialysis catheter in a caudad direction. I then cut the middle lumen of the Trialysis catheter. I advanced a wire under fluoroscopy. I then cut the nylon sutures to the Trialysis catheter and the Trialysis catheter was then removed. Over the wire, I dilated to a larger size. Dilator sheath was then advanced. This was all witnessed under fluoroscopy. The dilator and wire were removed. Through the sheath, I advanced the tips of the HemoSplit catheter. The Peel-Away sheath was then removed. I then pulled back on the HemoSplit catheter flange. This seated the cuff in subcutaneous tissues. Under fluoroscopy, the tips of the HemoSplit catheter appeared to be within the right innominate vein or the superior vena cava. There was no apparent kinking OPERATIVE REPORT [id number] CATHY WILBURN or twisting of the HemoSplit catheter. No pneumothorax. I then sutured the neck incision with interrupted intracuticular 3-0 Vicryls. I sutured the flange of the HemoSplit catheter to underlying skin with 2-0 nylons. I flushed one of the HemoSplit catheters with heparinized saline and then the appropriate amount of concentrated heparin. The anesthesia staff began using the other lumen of the HemoSplit catheter for IV access. A sterile dressing was applied. The patient was then extubated and conveyed to post-anesthesia care unit where he was in stable condition. There is no family present to speak to. TRANSINT:[id number] Voice Confirmation ID: [id number] DOCUMENT ID: [id number] KESHIA BROWER MD at 1631 CC: GRETCHEN SCHULER MD and TYRA SHAW MD [id number] DICTATION DATE: 08/11/[address] REPORTER: 08/11/19 1506 DIS IN 08/12/19 [facility] [address] [place] [address]
--- NOTE | 2019-08-13 16:31 | OP ---
PATIENT NAME: CATHY WILBURN MEDICAL RECORD: [id number] :78 LOCATION:D.M2 D.2139 ADMISSION DATE:08/06/19 SURGEON: POOL BROWER MD DATE OF OPERATION: 08/06/2019 PREOPERATIVE DIAGNOSIS: End-stage renal disease without access for hemodialysis. POSTOPERATIVE DIAGNOSES: End-stage renal disease without access for hemodialysis. PROCEDURE: Insertion of right internal jugular Trialysis catheter (non-tunneled, non-cuffed triple lumen hemodialysis catheter). SURGEON: Pool Brower MD VENUE COORDINATOR: None. BLOOD LOSS: Minimal. ANESTHESIA: Local. COMPLICATIONS: None. OPERATIVE COURSE: The procedure was performed at the bedside. The patient was positioned supine. The right neck was interrogated with the ultrasound. It revealed a large compressible right internal jugular vein. The right neck and right upper chest were sterilely prepped and draped. A local anesthetic was used to infiltrate the skin and subcutaneous tissues at the base of the right neck. The patient's internal jugular vein and external jugular vein are very closely applied. I percutaneously accessed the right internal jugular vein on the first stick in an antegrade fashion. A guidewire passed easily. A small skin ernesto was accomplished. A vessel dilator was used to dilate the subcutaneous tract. A Trialysis catheter was inserted to the hub. It was sutured in place times 3 with a nylon suture. All lumens flushed easily and aspirated dark, nonpulsatile blood. A stat portable chest x-ray revealed no radiographic evidence of complication. TRANSINT:[id number] Voice Confirmation ID: [id number] DOCUMENT ID: [id number] POOL BROWER MD at 1631 CC: [id number] DICTATION DATE: 08/07/19 1550 IC DESIGNER GATE ARRAYS: 08/08/19 0122 DIS IN 08/12/19 [facility] [address] [place] [id number]
== END 2019-08-12 19:38 | disposition home or self-care (01) | DRG 673 ==
LOC: D.ER 22:28 → D.MS 08-06 02:24 → D.CVICU 08-06 02:24 → D.M2 08-06 02:24 → D.ICU 08-06 13:25 → D.CVICU 08-06 14:18 → D.M2 08-09 14:48
PROVIDERS: Emergency Medicine; Family Medicine; Internal Medicine; Internal Medicine Nephrology; Surgery; ADMIT Family Medicine; ATTEND Family Medicine
PROC: 05HM33Z Insertion of Infusion Device into Right Internal Jugular Vein, Percutaneous Approach (ICD-10-PCS; 2019-08-06)
PROC: B2111ZZ Fluoroscopy of Multiple Coronary Arteries using Low Osmolar Contrast (ICD-10-PCS; 2019-08-07)
PROC: B2151ZZ Fluoroscopy of Left Heart using Low Osmolar Contrast (ICD-10-PCS; 2019-08-07)
PROC: 4A023N7 Measurement of Cardiac Sampling and Pressure, Left Heart, Percutaneous Approach (ICD-10-PCS; 2019-08-07)
PROC: 05HM33Z Insertion of Infusion Device into Right Internal Jugular Vein, Percutaneous Approach (ICD-10-PCS; 2019-08-11)
PROC: 0JH63XZ Insertion of Tunneled Vascular Access Device into Chest Subcutaneous Tissue and Fascia, Percutaneous Approach (ICD-10-PCS; principal; 2019-08-11 07:30)
DX: N17.9 Acute kidney failure, unspecified (principal); I21.4 Non-ST elevation (NSTEMI) myocardial infarction; I16.1 Hypertensive emergency; E87.1 Hypo-osmolality and hyponatremia; F17.203 Nicotine dependence unspecified, with withdrawal; I42.8 Other cardiomyopathies; I12.0 Hypertensive chronic kidney disease with stage 5 chronic kidney disease or end stage renal disease; N18.6 End stage renal disease; I51.7 Cardiomegaly; E87.6 Hypokalemia; D64.9 Anemia, unspecified; G47.33 Obstructive sleep apnea (adult) (pediatric); F12.90 Cannabis use, unspecified, uncomplicated; R60.9 Edema, unspecified; J40 Bronchitis, not specified as acute or chronic

== ENCOUNTER 2019-09-11 18:27 | Inpatient (IN) | payer MEDICAID ==
[~2019-09-11] VITALS: Ht 180.3 cm; Wt 114.8 kg
--- NOTE | ~2019-09-11 | OP ---
PATIENT NAME: CATHY WILBURN MEDICAL RECORD: [id number] :79 LOCATION:D.M2 D.2110 ADMISSION DATE:09/11/19 SURGEON: ONESIMO COLEMAN MD DATE OF OPERATION: 09/14/2019 REFERRING PHYSICIAN: Dr. Darion Brewer. PREOPERATIVE DIAGNOSES: End-stage renal disease and dependence on hemodialysis and sepsis associated with centrally inserted tunneled dialysis catheter. POSTOPERATIVE DIAGNOSES: End-stage renal disease and dependence on hemodialysis and sepsis associated with centrally inserted tunneled dialysis catheter. OPERATION PERFORMED: Implantation of a new tunneled dialysis catheter. He has a left internal jugular vein with ultrasound as well as fluoroscopic guidance and ultrasound images documented on the paper and placed in the patient record. PREOPERATIVE NOTE: This patient is returned as planned to the operating room after having his infected right IJ catheter removed on Saturday. Today is Saturday and he is going to have a new catheter implanted on the left. Under anesthesia, the patient was prepped and draped in sterile manner. The left internal jugular vein was located with Duplex Ultrasound. The vein was noted to be of normal caliber and fully compressible. There were no sonographic abnormalities. Images were documented on hard paper, print outs then placed in the patient record. Under continuous real-time ultrasound imaging, I first made an incision at the base of the neck over the left internal jugular vein and then cannulated the vein with micropuncture needle and 0.018 guidewire. Again, ultrasound images were documented in the patient's record. Then, under fluoroscopy and with a catheter and wire exchange, a 0.035 guidewire was advanced into the inferior vena cava. Dilators were passed over the wire and lastly, a dilator peel-away sheath was placed. I made an incision just beneath the clavicle and chose a new 23 cm long HemoSplit catheter. This was pulled through a subcutaneous tunnel from the infraclavicular incision up to the cervical wound where it was then passed through the peel-away sheath and positioned in the right atrium and the peel-away sheath removed. Both lumens of the catheter were accessed and aspirated, free return of blood was confirmed. The catheter was then flushed with saline and then heparin locked, clamped and capped. The catheter was sutured to the skin near the entry site with the suture wing using 2-0 Prolene. The Dacron felt cuff was about longterm between the entry site and the cervical incision. The cervical wound was closed with interrupted inverted 3-0 Vicryl and Dermabond glue and dressed with Maxorb Ag, Tegaderm, and Cavilon skin prep. A chlorhexidine BioPatch was placed on the catheter at the entry site and a standard CVL dressing. Again, Cavilon skin prep was utilized. The patient was then awakened and in satisfactory condition returned to the recovery room. At some point, the patient will need to be returned for creation of an arteriovenous fistula, but that certainly needs to await complete resolution of his infection, etc. TRANSINT:[id number] Voice Confirmation ID: [id number] DOCUMENT ID: [id number] OPERATIVE REPORT [id number] CATHY WILBURN JAMES MD CC: YOEL AIKEN and DARION BREWER MD [id number] DICTATION DATE: 09/16/191419 WELDING TECHNICIAN: 09/17/19 0003 DIS IN 09/15/19 [facility] [address] [place] [address]
--- NOTE | ~2019-09-11 | OP ---
PATIENT NAME: CATHY WILBURN MEDICAL RECORD: [id number] :78 LOCATION:D.M2 D.2110 ADMISSION DATE:09/11/19 SURGEON: ONESIMO COLEMAN MD DATE OF OPERATION: 09/12/2019 His referral was from Dr. Darion Romeo. PREOPERATIVE DIAGNOSIS: Sepsis and tunnel abscess associated with infected right internal jugular tunneled dialysis catheter. ADDITIONAL DIAGNOSES: End-stage renal disease and dependence on hemodialysis. POSTOPERATIVE DIAGNOSIS: Sepsis and tunnel abscess associated with infected right internal jugular tunneled dialysis catheter. OPERATION PERFORMED: Removal of infected tunneled dialysis catheter, [address]. ANESTHESIA: None. SURGEON: Onesimo Coleman MD PREOPERATIVE NOTE: Mr. Wilburn is a 38-year-old -Serbian male patient from [place], [place]. He is a chronic hemodialysis patient and has been dialyzing with a right internal jugular tunneled dialysis catheter. He has developed a severe infection with sepsis and was transferred to [place] last night. He was brought to the operating room this morning to remove his infected catheter and drain the associated tunnel abscess with plans to been a delay on inserting a new dialysis catheter until Saturday taking him back to the operating room on 09/14/2019 and implanting a new catheter in a different location. PROCEDURE: The patient was in supine position. He was prepped and draped in a sterile manner and the catheter was removed with gentle traction as there was very little or any fixation of the Dacron felt cuff within the tunnel. Interestingly, there was no drainage. A sterile dressing was applied. The catheter was discarded unfortunately before we were able to get cultures. The patient tolerated this all well and was returned to his room in stable condition. I will plan to return him to the operating room Saturday for new catheter. TRANSINT:[id number] Voice Confirmation ID: [id number] DOCUMENT ID: [id number] ONESIMO COLEMAN MD CC: [id number] DICTATION DATE: 09/16/19 1415 SAMPLE TESTER GRINDER: 09/17/19 0013 DIS IN 09/15/19 [id number] [place] [address]
[~2019-09-11 18:27] MED LIST: ASPIRIN81 MG PO; METOPROLOL TART50 MG PO; NORVASC5 MG PO
[2019-09-11] MEDS ORDERED: COZAAR50 MG PO (20:23)
[2019-09-11] MEDS ORDERED: HCTZ25 MG PO (20:24)
[2019-09-12 02:41] VITALS: BP 154/83
[2019-09-12 05:10] LABS: BASOPHILS 0 % (0-2); EOSINOPHILS 0.8 % (0-7); HEMATOCRIT 36.5 % (42.0-54.0); HEMOGLOBIN 11.8 g/dL (13.5-17.5); IMMATURE GRANULOCYTES 0.2 % (0-5); LYMPHOCYTES 28.5 % (15-50); MCHC 32.3 g/dL (31.0-37.0); MCV 92.9 fL (80.0-100.0); MEAN PLATELET VOLUME 10.5 fL (7.4-10.4); MONOCYTES 10.6 % (2-11); NEUTROPHILS 59.9 % (40-80); RBC 3.93 10x6/uL (4.20-6.10); RDW 13.3 % (11.5-14.5); WBC 11.4 10x3/uL (4.8-10.8)
[2019-09-12 05:12] LABS: PLATELET COUNT 399 10x3/uL (130-400)
[2019-09-12 05:17] LABS: INR 0.98 (0.85-1.17)
[2019-09-12 05:57] VITALS: BP 172/80
[2019-09-12 06:05] LABS: BILIRUBIN - TOTAL 0.31 mg/dL (0.2-1.3); CALCIUM 8.7 mg/dL (8.5-10.1); CARBON DIOXIDE 26.1 mmol/L (21.0-32.0); CREATININE - SERUM 4.9 mg/dL (0.6-1.3); MAGNESIUM - SERUM 1.8 mg/dL (1.8-2.4); PHOSPHOROUS 4.2 mg/dL (2.5-4.9); POTASSIUM - SERUM 3.1 mmol/L (3.5-5.1); VANCOMYCIN - TROUGH 6.1 ug/mL (10.0-20.0)
[2019-09-12 06:25] LABS: ERYTHROCYTE SEDIMENTATION RATE 38 mm/hr (0-15)
[2019-09-12 08:00] VITALS: BP 160/65
[2019-09-12 11:00] VITALS: BP 179/97
--- NOTE | 2019-09-12 12:16 | NUR ---
TAKEN TO SURGERY THIS AM, CATH PULLED FROM R NECK BY ROCK POLLARD WELL, CONT TO MONITOR
[2019-09-12 15:00] VITALS: BP 171/106
[2019-09-12 20:00] VITALS: BP 177/106
--- NOTE | 2019-09-12 21:42 | NUR ---
INITIAL ROUNDS COMPLETED AT 1910 HRS. PT RESTING WITH EYES CLOSED. RESP EVEN AND REGULAR. ASSESSMENT COMPLETED AT 2019 HRS. ALERT AND ORIENTED TO PERSON, PLACE AND TIME. LUTZ. IV TO LFA SL. IV PATENT. LUNGS ESSENTIALLY CTA. DRESSING TO R UPPER CHEST CLEAN,DRY AND INTACT. LUTZ. PALPABLE PERIPHERAL PULSES. PT CURRENTLY WATCHING TV. GIRLFRIEND AT BEDSIDE. SR UP X1, CALL LIGHT WITHIN REACH.
--- NOTE | 2019-09-12 22:28 | NUR ---
PT WASHED UP IN SINK.
--- NOTE | 2019-09-12 23:43 | NUR ---
PT RESTING WITH EYES CLOSED. RESP EVEN AND REGULAR. CALL LIGHT WITHIN REACH.
[2019-09-13] VITALS: BP 170/97
--- NOTE | 2019-09-13 01:37 | NUR ---
PT RESTING WITH EYES CLOSED IN RECLINER. RESP EVEN AND REGULAR. CALL LIGHT WITHIN REACH.
[2019-09-13 04:00] VITALS: BP 154/89
--- NOTE | 2019-09-13 04:20 | NUR ---
NORCO 5/325 PO GIVEN FOR C/O R NECK AND SHOULDER PAIN. CALL LIGHT WITHIN REACH.
[2019-09-13 05:16] LABS: BASOPHILS 0.1 % (0-2); EOSINOPHILS 1.2 % (0-7); HEMATOCRIT 36.2 % (42.0-54.0); HEMOGLOBIN 11.7 g/dL (13.5-17.5); IMMATURE GRANULOCYTES 0.4 % (0-5); LYMPHOCYTES 20.3 % (15-50); MCH 29.9 pg (26.0-34.0); MCHC 32.3 g/dL (31.0-37.0); MCV 92.6 fL (80.0-100.0); MEAN PLATELET VOLUME 10.7 fL (7.4-10.4); MONOCYTES 10.7 % (2-11); NEUTROPHILS 67.3 % (40-80); PLATELET COUNT 439 10x3/uL (130-400); RBC 3.91 10x6/uL (4.20-6.10); RDW 13.4 % (11.5-14.5); WBC 11.3 10x3/uL (4.8-10.8)
[2019-09-13 05:53] LABS: ALBUMIN 3.2 g/dL (3.4-5.0); ANION GAP 15.1 mmol/L (8-16); BILIRUBIN - TOTAL 0.29 mg/dL (0.2-1.3); CALCIUM 9.3 mg/dL (8.5-10.1); CARBON DIOXIDE 26.1 mmol/L (21.0-32.0); CREATININE - SERUM 5.4 mg/dL (0.6-1.3); PHOSPHOROUS 5.2 mg/dL (2.5-4.9); POTASSIUM - SERUM 3.2 mmol/L (3.5-5.1); PROTEIN - SERUM 7.6 g/dL (6.4-8.2); VANCOMYCIN - RANDOM 12.7 ug/mL (10.0-20.0)
--- NOTE | 2019-09-13 06:15 | NUR ---
VSS THROUGHOUT NIGHT. PT STATES NORCO CONTROLLED HIS R NECK PAIN. PT STTES HE IS VERY UNHAPPY WITH SURGEON WHO REMOVED HIS DIALYSIS CATHETER. INFORMED PT TO VERBALIZE THIS TO HIS DOCTORS IN AM. PT STATED UNDERSTANDING. NEEDS MET; WILL CONTNUE TO MONITOR.
--- NOTE | 2019-09-13 07:20 | NUR ---
RECIEVE REPORT. RESTING IN CHAIR WITH EYES CLOSED. FAMILY IN BED. NO SIGNS OF DISTRESS. CONTINUE PLAN OF CARE AND SAFETY PRECAUTIONS.
[2019-09-13 08:00] VITALS: BP 190/92
[2019-09-13 11:00] VITALS: BP 179/112
[2019-09-13 15:00] VITALS: BP 164/106
--- NOTE | 2019-09-13 17:24 | NUR ---
ALERT AND ORIENTED X4. SITTING UP IN BED. REFUSE TO SIGN CONSENT FOR HEMOSPLIT PLACEMENT. WISHES TO FIRE AND HAVE NEW DOCTOR ON CASE. NOTIFY . WILL PASS ONTO ONCOMING RENAL DOCTOR PER .
[2019-09-13 20:00] VITALS: BP 174/98
--- NOTE | 2019-09-13 20:04 | NUR ---
INITIAL ROUNDS COMPLETED AT 1910 HRS. PT RESTING WITH EYES CLOSED. RESP EVEN AND REGULAR. ASSESSMENT COMPLETED AT 194 HRS. ALERT AND ORIENTED TO PERSON,PLACE AND TIME. LUTZ. IV TO LFA SL. DRESSING TO R UPPER CHEST CLEAN,DRY AND INTACT. LUNGS DIMINISHED IN BASES BILAT. INFORMED PT THATHEIS NPO AFTER MIDNIGHT. PT STATES OK BUT HE DOES NOT WANT DR COLEMAN TO DO THE SURGERY. HOLDING OFF ON PERMITS. INFORMED PT TO SPEAK WITH HIS DRS IN AM. SR UP X2, CALL LIGHT WITHIN REACH.
--- NOTE | 2019-09-13 22:35 | NUR ---
PT RESTING WITH EYES CLOSED. RESP EVEN AND REGULAR. WOUND CULTURE OBTAINED AT 2210 HRS.
--- NOTE | 2019-09-13 23:49 | NUR ---
PT RESTING WITH EYES CLOSED. RESP EVEN AND REGULAR. CALL LIGHT WITHIN REACH.
[2019-09-14] VITALS (7 sets, daily range): BP systolic 148–187; BP diastolic 78–109; Ht 180.3 cm; Wt 114.8 kg
--- NOTE | 2019-09-14 01:51 | NUR ---
PT RESTING WITH EYES CLOSED. RESP EVEN AND REGULAR. SR UP X1, CALL LIGHT WITHIN REACH.
--- NOTE | 2019-09-14 04:23 | NUR ---
PT RESTING WITH EYES CLOSED. RESP EVEN AND REGULAR. SR UP X1, CALL LIGHT WITHIN REACH.
--- NOTE | 2019-09-14 05:51 | NUR ---
VSS THIS AM. NPO SINCE MIDNIGHT. PT DOING OWN HIBICLENS SHOWER AT THIS TIME. BED LINENS CHANGED. NEEDS MET; WILL CONTINUE TO MONITOR.
[2019-09-14 06:49] LABS: ALBUMIN 3.2 g/dL (3.4-5.0); ANION GAP 14.4 mmol/L (8-16); BILIRUBIN - TOTAL 0.28 mg/dL (0.2-1.3); CALCIUM 9.1 mg/dL (8.5-10.1); CARBON DIOXIDE 26.1 mmol/L (21.0-32.0); CREATININE - SERUM 5.2 mg/dL (0.6-1.3); POTASSIUM - SERUM 3.5 mmol/L (3.5-5.1); PROTEIN - SERUM 7.8 g/dL (6.4-8.2); VANCOMYCIN - RANDOM 16.2 ug/mL (10.0-20.0)
--- NOTE | 2019-09-14 07:20 | NUR ---
RECIEVE REPORT. RESTING IN BED WITH EYES CLOSED. NO SIGNS OF DISTRESS. CONTINUE PLAN OF CARE AND SAFETY PRECAUTIONS.
[2019-09-14 07:44] LABS: BASOPHILS 0 % (0-2); EOSINOPHILS 2.5 % (0-7); HEMATOCRIT 36.7 % (42.0-54.0); HEMOGLOBIN 11.9 g/dL (13.5-17.5); IMMATURE GRANULOCYTES 0.2 % (0-5); LYMPHOCYTES 27.1 % (15-50); MCH 29.9 pg (26.0-34.0); MCHC 32.4 g/dL (31.0-37.0); MCV 92.2 fL (80.0-100.0); MEAN PLATELET VOLUME 10.4 fL (7.4-10.4); MONOCYTES 7.5 % (2-11); NEUTROPHILS 62.7 % (40-80); PLATELET COUNT 506 10x3/uL (130-400); RBC 3.98 10x6/uL (4.20-6.10); RDW 13.3 % (11.5-14.5); WBC 9.6 10x3/uL (4.8-10.8)
--- NOTE | 2019-09-14 14:17 | NUR ---
ARRIVE BACK TO ROOM VIA BED FROM OR. LT CHEST HEMOSPLIT PLACED. DRESSING C/D/I. BP-159/102, 97% RA, HR-72. DENIES ANY NEEDS. CONTINUE PLAN OF CARE AND SAFETY PRECAUTIONS.
[2019-09-15 00:30] VITALS: BP 180/97
--- NOTE | 2019-09-15 02:34 | NUR ---
I have reviewed this patient and I concur with the Shift Assessment completed by the Licensed Practical Nurse today this shift.
[2019-09-15 04:00] VITALS: BP 153/91
[2019-09-15 06:15] LABS: BASOPHILS 0.1 % (0-2); HEMATOCRIT 35.3 % (42.0-54.0); HEMOGLOBIN 11.4 g/dL (13.5-17.5); IMMATURE GRANULOCYTES 0.3 % (0-5); LYMPHOCYTES 26.1 % (15-50); MCH 29.6 pg (26.0-34.0); MCHC 32.3 g/dL (31.0-37.0); MCV 91.7 fL (80.0-100.0); MEAN PLATELET VOLUME 10.2 fL (7.4-10.4); MONOCYTES 8.1 % (2-11); NEUTROPHILS 60.4 % (40-80); PLATELET COUNT 443 10x3/uL (130-400); RBC 3.85 10x6/uL (4.20-6.10); RDW 13.2 % (11.5-14.5); WBC 10.1 10x3/uL (4.8-10.8)
--- NOTE | 2019-09-15 07:20 | NUR ---
RECIEVE REPORT. RESTING IN BED WITH EYES CLOSED. NO SIGNS OF DISTRESS. CONTINUE PLAN OF CARE AND SAFETY PRECAUTIONS.
[2019-09-15 07:30] LABS: ALBUMIN 2.9 g/dL (3.4-5.0); ANION GAP 15.1 mmol/L (8-16); BILIRUBIN - TOTAL 0.31 mg/dL (0.2-1.3); CALCIUM 9.3 mg/dL (8.5-10.1); CARBON DIOXIDE 25.2 mmol/L (21.0-32.0); CREATININE - SERUM 4.9 mg/dL (0.6-1.3); PHOSPHOROUS 4.4 mg/dL (2.5-4.9); POTASSIUM - SERUM 3.3 mmol/L (3.5-5.1); PROTEIN - SERUM 7.2 g/dL (6.4-8.2)
[2019-09-15 08:49] VITALS: BP 171/100
[2019-09-15 12:14] VITALS: BP 164/107
--- NOTE | 2019-09-15 15:10 | MORECARE ---
CASE MANAGEMENT DISCHARGE SUMMARY PATIENT: CATHY WILBURN UNIT: [id number] ADM DATE: 09/11/19 AGE: 38 : 79 SEX: M ROOM/BED: D.[facility] AUTHOR: FABIANO SANDHU PHYSICIAN: REFERRING PHYSICIAN: KIRTI BREWER MD DATE OF SERVICE: 09/15/19 Discharge Plan Patient Name: CATHY WILBURN [facility] [facility] 1980 Planned Disposition: Anticipated Discharge Date: Discharge Date: Expected LOS: Initial Reviewer: [email or web address] Initial Review Date: 09/11/2019 Generated: 09/15/19 4:10 pm Coverage Notice Reviewer: [email or web address] Perlita Wallis Notice Issued Date-Time: 09/15/2019 14:00 Notice Type: Patient Choice Letter Notice Delivered To: Patient Relationship to Patient: Dry Chain Operator Name: Delivery Method: HAND - Hand Delivered Judy Days: Prior Verbal Notification: Recipient Understood Notice: Yes Recipient Signature: Yes Med Rec Note Co-signed by Attending: Coverage Notice Comment: DECLINED HH Patient Name: CATHY WILBURN Page [id number] at 1510 All edits/amendments must be made on the electronic document DICTATION DATE: 09/15/19 151 PROMOTIONS REPRESENTATIVE: ANDREW 09/15/19 151 RPT#: [id number] DC DATE: STATUS: ADM IN [address] [place] [address] END OF REPORT
--- NOTE | 2019-09-15 16:59 | NUR ---
ALERT AND ORIENTED X4. SITTING UP IN BED. DISCHARGE INSTRUCTIONS GIVEN VERBALLY AND WRITTEN. DISCHARGE PAPERS SIGNED ON CHART. DC LT FA IV TIP INTACT. WAITING FOR RIDE. DENIES ANY NEEDS. CONTINUE PLAN OF CARE AND SAFETY PRECAUTIONS.
--- NOTE | 2019-09-15 17:26 | NUR ---
ESCORT TO RIDE VIA WHEELCHAIR. REMAINS FREE FROM INJURY.
== END 2019-09-15 17:27 | disposition home or self-care (01) | DRG 314 ==
LOC: D.M2 18:27
PROVIDERS: Internal Medicine Nephrology; ADMIT Internal Medicine Nephrology; ATTEND Internal Medicine Nephrology
PROC: 05PY3YZ Removal of Other Device from Upper Vein, Percutaneous Approach (ICD-10-PCS; principal; 2019-09-12)
PROC: 05HN33Z Insertion of Infusion Device into Left Internal Jugular Vein, Percutaneous Approach (ICD-10-PCS; 2019-09-14)
PROC: B5141ZA Fluoroscopy of Left Jugular Veins using Low Osmolar Contrast, Guidance (ICD-10-PCS; 2019-09-14)
DX: T82.7XXA Infection and inflammatory reaction due to other cardiac and vascular devices, implants and grafts, initial encounter (principal); N18.6 End stage renal disease; A41.9 Sepsis, unspecified organism; I12.0 Hypertensive chronic kidney disease with stage 5 chronic kidney disease or end stage renal disease; N25.81 Secondary hyperparathyroidism of renal origin; E87.6 Hypokalemia; D63.1 Anemia in chronic kidney disease